=== PATIENT | male | born 1965 ===

== ENCOUNTER 2019-02-07 15:15 | Emergency (ER) | payer OTHER ==
[2019-02-07 15:25] VITALS: BP 152/86
--- NOTE | 2019-02-07 15:35 | UC ---
Cardiac HPI - HPI Summary HPI Summary: 53-year-old male presents with 2 day history of chest pain and shortness of breath that worsened today. Pain radiates into both shoulders and arms. Symptoms are associated with some nausea. He reports he has been under a lot of stress at both work and at home. Patient reports history of both hypertension and hyperlipidemia but is presently not on any medications. States father had a heart attack at age 50. Patient states that he has also been worked up in the past for cardiac issues however is unable to recall if there is any significant findings. Denies fever, chills, weakness, dizziness, palpitations, cough, abdominal pain, vomiting, or diaphoresis. - History of Current Complaint Chief Complaint: UCChestPain Stated Complaint: CHEST PAIN Time Seen by Provider: 02/07/19 15:21 Hx Obtained From: Patient Pain Intensity: 5 - Allergy/Home Medications Allergies/Adverse Reactions: Allergies Allergy/AdvReac Type Severity Reaction Status Date / Time No Known Allergies Allergy Verified 02/07/19 15:29 Home Medications: Home Medications Acetaminophen [Tylenol] 325 mg PO DAILY WITH MEAL 02/07/19 [History Confirmed ] PMH/Surg Hx/FS Hx/Imm Hx Endocrine History: Dyslipidemia Cardiovascular History: Cardiac Disease, Hypertension - Surgical History Surgical History: None Surgery Procedure, Year, and 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 Negative: Cough Cardiovascular: Positive: Chest Pain. Negative: Palpitations Gastrointestinal: Negative: Abdominal Pain, Vomiting, Diarrhea, Nausea Genitourinary: Positive: Negative Musculoskeletal: Positive: Negative Neurological: Positive: Negative Is Patient Immunocompromised?: No Physical Exam - Summary Physical Exam Summary: GENERAL APPEARANCE: Well developed, well nourished, alert and cooperative, and appears to be in no acute distress. CARDIAC: Normal S1 and S2. No S3, S4 or murmurs. Rhythm is regular. There is no peripheral edema, cyanosis or pallor. Extremities are warm and well perfused. Capillary refill is less than 2 seconds. Peripheral pulses intact. LUNGS: Clear to auscultation without rales, rhonchi, wheezing or diminished breath sounds. ABDOMEN: Positive bowel sounds. Soft, nondistended, nontender. No guarding or rebound. No masses or hepatosplenomegally. MUSKULOSKELETAL: ROM intact to all extremities. No joint erythema or tenderness. Normal muscular development. Normal gait. SKIN: Skin normal color, texture and turgor with no lesions or eruptions. Triage Information Reviewed: Yes Vital Signs: Initial Vital Signs Temp 99.0 F 02/07/19 15:18 Pulse 87 02/07/19 15:18 Resp 18 02/07/19 15:18 BP 152/86 02/07/19 15: Pulse Ox 96 02/07/19 15:18 Vital Signs Reviewed: Yes Diagnostics - EKG Cardiac Rate: NL Cardiac Rhythm: Sinus: Normal Ectopy: None ST Segment: Normal Summary of EKG Findings: NSR without ectopy, ORLY, or Twave abnormality. Rate 84. - Assessment/Plan Course Of Treatment: 53-year-old male presents with 2 day history of chest pain and shortness of breath that worsened today. Pain radiates into both shoulders and arms. Symptoms are associated with some nausea. He reports he has been under a lot of stress at both work and at home. Patient reports history of both hypertension and hyperlipidemia but is presently not on any medications. States father had a heart attack at age 50. Patient states that he has also been worked up in the past for cardiac issues however is unable to recall if there is any significant findings. Patient states he took 2 aspirin prior to arrival. Denies fever, chills, weakness, dizziness, palpitations, cough, abdominal pain, vomiting, or diaphoresis. Afebrile. Hypertensive otherwise vital signs stable. Exam was overall unremarkable. Twelve-lead EKG showed normal sinus rhythm at a rate of 84 without ectopy, ST elevation, or T-wave abnormalities. Based on his symptoms and history I have recommended that he be evaluated in the emergency room for further evaluation with transport via EMS. Patient is agreeable to this plan of care. - Differential Diagnoses - Chest Pain Differential Diagnosis/HQI/PQRI: ACS, Aortic Aneurysm, Chest Wall, Lower Respiratory Infection, Pulmonary Embolism - Clinical Impression Provider Diagnosis: Chest pain - Physician Notifications Discussed Patient Care With: Sami Guzman Time Discussed With Above Provider: 15:45 Instructed by Provider To: MD Will See In ED Discharge - Sign-Out/Discharge Documenting (check all that apply): Patient Departure All imaging exams completed and their final reports reviewed: No Studies - Discharge Plan Condition: Guarded Disposition: TRANS HIGHER LVL OF CARE FAC Referrals: Jaime Magana MD [Primary Care Provider] - Additional Instructions: Based on your history and symptoms I am recommending that you be transferred to the emergency room via ambulance for further evaluation. - Billing Disposition and Condition Condition: GUARDED Disposition: Trans Higher Lvl of Care Fac - Attestation Statements Provider Attestation: I was available for consult. This patient was seen by the KRYSTEN. The patient was not presented to, seen by, or examined by me. -Maile
== END 2019-02-07 16:30 | disposition short-term general hospital (02) ==
LOC: UCEAST 15:15
DX: R07.89 Other chest pain (principal); R06.02 Shortness of breath; R11.0 Nausea; E78.5 Hyperlipidemia, unspecified; I11.9 Hypertensive heart disease without heart failure; Z82.49 Family history of ischemic heart disease and other diseases of the circulatory system; F17.200 Nicotine dependence, unspecified, uncomplicated
CPT/HCPCS: 99213; G0463

== ENCOUNTER 2019-02-07 16:18 | Emergency (ER) | payer OTHER ==
[2019-02-07] MEDS ORDERED: NS 0.9% 1000 ML** 1,000 ML IV ONE (16:39)
[2019-02-07] MEDS ORDERED: Ondansetron INJ* 2 MG/ML VIAL IV ONE (17:05)
--- NOTE | 2019-02-07 17:17 | ED ---
HPI Chest Pain - HPI Summary HPI Summary: Pt is a 53 y/o M presenting to the ED brought in by EMS from for chest pain. The pain first came on two weeks ago randomly on his R anterior chest, is intermittent, and worsened with movement and deep breaths. While at , he had a high blood sugar, which is why they sent him here. He reports nausea with the chest pain. He denies fevers, chills, and vomiting. He has no hx of DM and no Fhx of DM either. He is a former smoker who recently started smoking again, and has notable pmhx of HTN and HLD. He does not have hx of blood clots, DVT, or drug use. - History of Current Complaint Chief Complaint: EDChestWallPain Time Seen by Provider: 02/07/19 16:27 Hx Obtained From: Patient Onset/Duration: Started Weeks Ago, Still Present Timing: Intermittent, Lasting Hours Initial Severity: Moderate Current Severity: Moderate Pain Intensity: 5 Pain Scale Used: 0-10 Numeric Chest Pain Location: Right Anterior Chest Pain Radiates: No Aggravating Factor(s): Movement, Deep Breaths Alleviating Factor(s): Spontaneous Resolution Associated Signs and Symptoms: Positive: Chest Pain, Nausea. Negative: Fever, Chills, Vomiting - Allergy/Home Medications Allergies/Adverse Reactions: Allergies Allergy/AdvReac Type Severity Reaction Status Date / Time No Known Allergies Allergy Verified 02/07/19 15:29 PMH/Surg Hx/FS Hx/Imm Hx Previously Healthy: Yes Endocrine/Hematology History: Denies: Hx Blood Disorders, Hx Diabetes, Hx Thyroid Disease Cardiovascular History: Reports: Hx Hypercholesterolemia, Hx Hypertension Denies: Hx Deep Vein Thrombosis Respiratory History: Denies: Hx Asthma, Hx Chronic Obstructive Pulmonary Disease (COPD) GI History: Denies: Hx Ulcer - Surgical History Surgery Procedure, Year, and 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 Negative: Vomiting All Other Systems Reviewed And Are Negative: Yes Physical Exam - Summary Physical Exam Summary: GENERAL: Patient is a well-developed and nourished male who is lying comfortable in the stretcher. Patient is not in any acute respiratory distress. HEAD AND FACE: Normocephalic EYES: PERRLA, EOMI x 2. EARS: Hearing grossly intact. MOUTH: Oropharynx within normal limits. NECK: Supple, trachea is midline, no adenopathy, no JVD, no carotid bruit. CHEST: Symmetric, no tenderness at palpation LUNGS: Clear to auscultation bilaterally. No wheezing or crackles. CVS: Regular rate and rhythm, S1 and S2 present, no murmurs or gallops appreciated. ABDOMEN: Soft, non-tender. Bowel sounds are normal. No abnormal abdominal pulsations. EXTREMITIES: Full ROM in all major joints, no edema, no cyanosis or clubbing. NEURO: Alert and oriented x 3. No acute neurological deficits. Speech is normal and follows commands. SKIN: Dry and warm Triage Information Reviewed: Yes Vital Signs On Initial Exam: Initial Vitals Temp Pulse Resp BP Pulse Ox 98.7 F 86 18 145/86 99 02/07/19 16:31 02/07/19 16:31 02/07/19 16:31 02/07/19 16:31 02/07/19 16:31 Vital Signs Reviewed: Yes Diagnostics - Vital Signs Vital Signs Temp Pulse Resp BP Pulse Ox 02/07/19 16:31 98.7 F 86 18 145/86 99 - Laboratory Result Diagrams: 02/07/19 17:06 02/07/19 17:06 Lab Statement: Any lab studies that have been ordered have been reviewed, and results considered in the medical decision making process. - Radiology CXR Radiology Interpretation Completed By: Radiologist Summary of Radiographic Findings: No radiographic evidence for acute cardiopulmonary abnormality on this portable chest x-ray. ED physician has reviewed this report. - EKG 1632 Cardiac Rate: NL - 77bpm EKG Rhythm: Sinus Rhythm ST Segment: Normal Ectopy: None Summary of EKG Findings: EKG at 1632 shows NSR at 77bpm with L axis deviation. Chest Pain Course/Dx - Course Course Of Treatment: Pt is a 53 y/o M presenting to the ED brought in by EMS from for chest pain. The pain first came on two weeks ago randomly on his R anterior chest, is intermittent, and worsened with movement and deep breaths. He reports nausea with the chest pain. He denies fevers, chills, and vomiting. EKG at 1632 shows NSR at 77bpm with L axis deviation. CXR shows: No radiographic evidence for acute cardiopulmonary abnormality on this portable chest x-ray. Pts coagulation shows an APTT of 120.5. His chemistry shows a BUN /Creatinine level of 22.4, and CRP of 5.57. His troponin and lactic acid are nml. His hemoglobin A1c is 6.1. Pts second labs show that his APTT is 33.5, and his second troponin is also normal. I gave the pt NTG which did not do anything for the patient besides give him a headache. To alleviate the headache , I gave the pt Toradol.I discussed the results with the patient in details including borderline DM. I will be discharging him home with a dx of chest pain and instructions to follow up with his PCP in the next 1-3 days and cardiology. He is stable and agreeable with this plan. Stric return precautions given - Diagnoses Provider Diagnoses: Chest pain Discharge - Sign-Out/Discharge Documenting (check all that apply): Patient Departure Patient Received Moderate/Deep Sedation with Procedure: No - Discharge Plan Condition: Stable Disposition: HOME Forms: *Work Release Referrals: Jaime Magana MD [Primary Care Provider] - Carlos Wilson MD [Medical Doctor] - Additional Instructions: Please follow up with your primary care physician in the next 1-3 days. Return to the emergency department with any new or worsening symptoms. - Billing Disposition and Condition Condition: STABLE Disposition: Home - Attestation Statements Document Initiated by Noreen: Yes Documenting Scribe: Stephanie Kaplan Provider For Whom Noreen is Documenting (Include Credential): Cynthia Veras MD. Scribe Attestation: Stephanie [place] scribed for Cynthia Veras MD. on 02/08/19 at 1126. Scribe Documentation Reviewed: Yes Provider Attestation: The documentation as recorded by the Stephanie frank accurately reflects the service I personally performed and the decisions made by me, Sarah Veras MD. Status of Scribe Document: Viewed
[2019-02-07 17:22] LABS: ABS Eosinophils 0.1 10^3/ul (0-0.6); ABS Lymphocytes 1.7 10^3/ul (1.0-4.8); ABS Monocytes 0.8 10^3/ul (0-0.8); ABS Neutrophils 5.9 10^3/ul (1.5-7.7); Eosinophil % 0.7 %; Hematocrit 44 % (42-52); Hemoglobin 14.4 g/dL (14.0-18.0); Mean Corpuscular HGB Conc 33 g/dL (31-36); Mean Corpuscular Hemoglobin 29 pg (27-31); Mean Corpuscular Volume 87 fL (80-94); Mean Platelet Volume 8.7 fL (7.4-10.4); Platelet Count 202 10^3/uL (150-450); Red Blood Count 5.05 10^6 /uL (4.18-5.48); Red Cell Distribution Width 14 % (10.5-15); White Blood Count 8.4 10^3/uL (3.5-10.8)
[2019-02-07 17:38] LABS: Albumin 4.1 g/dL (3.2-5.2); Albumin/Globulin Ratio 1.5 (1-3); BUN/Creatinine Ratio 22.4 (8-20); CRP High Sensitivity 5.57 mg/L (<2.00); Calcium 8.8 mg/dL (8.6-10.3); EGFR African American 114.5 (>60); EGFR Non-African American 94.7 (>60); Globulin 2.8 g/dL (2-4); Magnesium 2.2 mg/dL (1.9-2.7); Potassium 3.6 mmol/L (3.5-5.0); Total Bilirubin 0.4 mg/dL (0.2-1.0); Total Protein 6.9 g/dL (6.4-8.9)
[2019-02-07 17:52] LABS: INR 0.91 (0.82-1.09)
[2019-02-07 18:19] LABS: Activated Partial Thrombo Time 120.5 seconds (26.0-36.3)
[2019-02-07] MEDS ORDERED: Nitroglycerin TAB 0.4 MG* 0.4 MG TAB SL ONE (19:10)
[2019-02-07] MEDS ORDERED: Ketorolac INJ* 30 MG/ML 1 ML VIAL IV PUSH ONE (20:01)
[2019-02-07 20:33] VITALS: BP 125/89
== END 2019-02-07 20:33 | disposition home or self-care (01) ==
LOC: ED 16:18
DX: R07.9 Chest pain, unspecified (principal); F17.210 Nicotine dependence, cigarettes, uncomplicated; R11.0 Nausea; E78.00 Pure hypercholesterolemia, unspecified; I10 Essential (primary) hypertension
CPT/HCPCS: 36415; 71045; 80053; 82803; 83036; 83605; 83690; 83735; 83880; 84484; 85025; 85379; 85610; 85730; 86141; 93005; 96361; 96374; 99283; A9270-GY; J2405